=== PATIENT | female | born 1975 | race Caucasian/White ===

== ENCOUNTER 2022-08-23 17:55 | Emergency (ER) | payer OTHER ==
[2022-08-23 18:02] VITALS: TEMP 97.2
--- NOTE | 2022-08-23 18:26 | ED ---
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 She states she's had no trouble with eating drinking or with having bowel movements or urine output. She does states she felt hot and sweaty but after she vomited this sensation when away. She was instructed by her neurologist to come the facility for evaluation. He voices no complaints of loss of function to her upp er or lower extremity she does have some slow speech which is residual from the surgery. Nothing new with respect to the speech. No other current complaints or modifying factors (Kyle Mckay) - Related Data Home Medications Medication Instructions Recorded Confirmed Acetaminophen [Tylenol] 650 mg PO Q4H PRN 08/23/22 08/23/22 Brivaracetam [Briviact] 100 mg PO BID@0900,2100 08/23/22 08/23/22 Famotidine [Pepcid] 20 mg PO BID@0900,2100 08/23/22 08/23/22 Lacosamide [Vimpat] 100 mg PO Q6H 08/23/22 08/23/22 dexAMETHasone See Taper PO DIRECTED 08/23/22 08/23/22 lisinopriL [Zestril] 20 mg PO DAILY@0900 08/23/22 08/23/22 polyethylene glycoL 3350 [Miralax] 17 gm PO DAILY 08/23/22 08/23/22 Allergies Allergy/AdvReac Type Severity Reaction Status Date / Time No Known Allergies Allergy Verified 08/23/22 18:12 Review of Systems ROS Other: All systems not noted in ROS Statement are negative. <Kyle Mckay - Last Filed: 08/23/22 21:06> ROS Other: All systems not noted in ROS Statement are negative. <Deejay Mercer - Last Filed: 08/23/22 23:46> ROS Statement: Those systems with pertinent positive or pertinent negative responses have been documented in the HPI. Past Medical History Past Medical History: Rheumatoid Arthritis (RA), Seizure Disorder Additional Past Medical History / Comment(s): brain tumor History of Any Multi-Drug Resistant Organisms: None Reported Additional Past Surgical History / Comment(s): brain tumor removed Past Alcohol Use History: None Reported Past Drug Use History: None Reported <Kyle Mckay - Last Filed: 08/23/22 21:06> General Exam Limitations: no limitations General appearance: alert, lethargic Head exam: Present: other (Well-healed surgical scar the left side with staple line intact no evidence of any wound dehiscence or drainage no localized erythema) Eye exam: Present: normal appearance, PERRL, EOMI. Absent: scleral icterus, conjunctival injection, periorbital swelling ENT exam: Present: mucous membranes dry Neck exam: Present: normal inspection. Absent: tenderness, meningismus, lymphadenopathy Respiratory exam: Present: normal lung sounds bilaterally. Absent: respiratory distress, wheezes, rales, rhonchi, stridor Cardiovascular Exam: Present: regular rate, normal rhythm, normal heart sounds. Absent: systolic murmur, diastolic murmur, rubs, gallop, clicks GI/Abdominal exam: Present: soft, normal bowel sounds. Absent: distended, tenderness, guarding, rebound, rigid Extremities exam: Present: normal inspection, full ROM, normal capillary refill. Absent: tenderness, pedal edema, joint swelling, calf tenderness Back exam: Present: normal inspection Neurological exam: Present: alert, oriented X3, CN II-XII intact Psychiatric exam: Present: normal affect, normal mood Skin exam: Present: warm, dry, intact, normal color. Absent: rash <Kyle Mckay - Last Filed: 08/23/22 21:06> - General Exam Comments Initial Comments: Is a well-developed well-nourished awake alert oriented 4 female (Kyle Mckay) Course <WoodyKyle - Last Filed: 08/23/22 21:06> Vital Signs 08/23/22 08/23/22 08/23/22 17:56 18:34 20:40 Temperature 97.2 F L Pulse Rate 77 82 70 Respiratory 16 18 18 Rate Blood Pressure 100/73 118/67 133/58 O2 Sat by Pulse 98 99 98 Oximetry 08/23/22 22:05 Temperature Pulse Rate 82 Respiratory 16 Rate Blood Pressure 120/72 O2 Sat by Pulse 98 Oximetry - Reevaluation(s) Reevaluation #1: 08/23/22 21:08 Initially discuss the case with patient family did discuss the findings thus far. Indicated Dr. Cowart was a patient physician that they contacted and who one be called back if is Dr. Cowart is a neurologist Dr. Cowart's partner did recommend calling the neurosurgeon was Dr. Kirk. I did discuss this with Dr. Mercer who is taking over care (Kyle Mckay) Medical Decision Making - Lab Data Result diagrams: 08/23/22 18:29 08/23/22 18:29 <Kyle Mckay - Last Filed: 08/23/22 21:06> - Lab Data Result diagrams: 08/23/22 18:29 08/23/22 18:29 <Deejay Mercer - Last Filed: 08/23/22 23:46> - Medical Decision Making Was pt. sent in by a medical professional or institution (, PA, MILITARY PAY TECHNICIAN, urgent care, hospital, or detention...) When possible be specific @ -[No] Did you speak to anyone other than the patient for history (EMS, parent, family, police, friend...)? What history was obtained from this source @ -[No] Did you review nursing and triage notes (agree or disagree)? Why? @ -[I reviewed and agree with nursing and triage notes] Were old charts reviewed (outside hosp., previous admission, EMS record, old EKG, old radiological studies, urgent care reports/EKG's, detention records)? Report findings @ -[old charts were reviewed] Differential Diagnosis (chest pain, altered mental status, abdominal pain women, abdominal pain men, vaginal bleeding, weakness, fever, dyspnea, syncope, headache, dizziness, GI bleed, back pain, seizure, CVA, palpatations, mental health, musculoskeletal)? @ -[Dehydration, gastritis, post neurosurgical complications] EKG interpreted by me (3pts min.). @ -[Ventolin] X-rays interpreted by me (1pt min.). @ -[None done] CT interpreted by me (1pt min.). @ -[Interpreted by me] U/S interpreted by me (1pt. min.). @ -[None done] What testing was considered but not performed or refused? (CT, X-rays, U/S, labs)? Why? @ -[None] What meds were considered but not given or refused? Why? @ -[None] Did you discuss the management of the patient with other professionals (professionals i.e. , PA, MILITARY PAY TECHNICIAN, lab, RT, psych nurse, social media senior associate, campground attendant, teacher, forest fire control officer, case operator)? Give summary @ -[No] Was smoking cessation discussed for >3mins.? @ -[No] Was critical care preformed (if so, how long)? @ -[No] Were there social determinants of health that impacted care today? How? (Ho melessness, low income, unemployed, alcoholism, drug addiction, transportation, low edu. Level, literacy, decrease access to med. care, shelter, rehab)? @ -[No] Was there de-escalation of care discussed even if they declined (Discuss DNR or withdrawal of care, Hospice)? DNR status @ -[No] What co-morbidities impacted this encounter? (DM, HTN, Smoking, COPD, CAD, Cancer, CVA, ARF, Chemo, Hep., AIDS, mental health diagnosis, sleep apnea, morbid obesity)? @ -[None] Was patient admitted / discharged? Hospital course, mention meds given and route, prescriptions, significant lab abnormalities, going to OR and other pertinent info. @ -[hospital course] Undiagnosed new problem with uncertain prognosis? @ -[No] Drug Therapy requiring intensive monitoring for toxicity (Heparin, Nitro, Insulin, Cardizem)? @ -[No] Were any procedures done? @ -[No] Diagnosis/symptom? @ -[default] Acute, or Chronic, or Acute on Chronic? @ -[default] Uncomplicated (without systemic symptoms) or Complicated (systemic symptoms)? @ -[default] Side effects of treatment? @ -[No] Exacerbation, Progression, or Severe Exacerbation? @ -[No] Poses a threat to life or bodily function? How? (Chest pain, [place], [place], pneumonia, PE, COPD, DKA, ARF, appy, cholecystitis, CVA, Diverticulitis, Homicidal, Suicidal, threat to staff... and all critical care pts) @ -[No] (Kyle Mckay) I assumed care of the patient from Dr. Mckay. I assumed care pending the follow- up with the neurosurgeon for final recommendations and management. Was pt. sent in by a medical professional or institution (DrDiane, PA, MILITARY PAY TECHNICIAN, urgent care, hospital, or detention...) When possible be specific @ -Yes, Dr. Cowart's office Did you speak to anyone other than the patient for history (EMS, parent, family, police, friend...)? What history was obtained from this source @ -Yes, daughter and Did you review nursing and triage notes (agree or disagree)? Why? @ -I reviewed and agree with nursing and triage notes Were old charts reviewed (outside hosp., previous admission, EMS record, old EKG, old radiological studies, urgent care reports/EKG's, detention records)? Report findings @ -No old charts were reviewed Differential Diagnosis (chest pain, altered mental status, abdominal pain women, abdominal pain men, vaginal bleeding, weakness, fever, dyspnea, syncope, headache, dizziness, GI bleed, back pain, seizure, CVA, palpatations, mental health)? @ -Post-operative complication, intracranial hemorrhage, mass effect EKG interpreted by me (3pts min.). @ -None X-rays interpreted by me (1pt min.). @ -None done CT interpreted by me (1pt min.). @ -CT head was obtained and was interpreted by myself showing recent postsurgical changes with apparent excision of the large extra-axial mass over the left temporal lobe convexity. There is encephalomalacia and small areas of hemorrhage at the left anterior temporal convexity measuring up to 1 cm in th ickness. There was no evidence of any significant mass effect upon the adjacent temporal lobe parenchyma. U/S interpreted by me (1pt. min.). @ -None done What testing was considered but not performed or refused? (CT, X-rays, U/S, labs)? Why? @ -None What meds were considered but not given or refused? Why? @ -None Did you discuss the management of the patient with other professionals (professionals i.e. , PA, MILITARY PAY TECHNICIAN, lab, RT, psych nurse, social media senior associate, campground attendant, teacher, forest fire control officer, case operator)? Give summary @ -Yes, the neurosurgeon, Dr. Kirk, was contacted and the case was discussed with him. Was smoking cessation discussed for >3mins.? @ -No Was critical care preformed (if so, how long)? @ -No Were there social determinants of health that impacted care today? How? (Homelessness, low income, unemployed, alcoholism, drug addiction, ansari sportation, low edu. Level, literacy, decrease access to med. care, shelter, rehab)? @ -No Was there de-escalation of care discussed even if they declined (Discuss DNR or withdrawal of care, Hospice)? DNR status @ -No What co-morbidities impacted this encounter? (DM, HTN, Smoking, COPD, CAD, Cancer, CVA, ARF, Chemo, Hep., AIDS, mental health diagnosis, sleep apnea, morbid obesity)? @ -Recent hemangioma excision Was patient admitted / discharged? Hospital course, mention meds given and route, prescriptions, significant lab abnormalities, going to OR and other pertinent info. @ -The patient was initially seen and evaluated by Dr. Mckay. Workup was initiated and CT scans were obtained. The patient's neurologist was contacted initially by Dr. Mckay however they stated that the neurosurgeon needed be contacted regarding the CT findings. Dr. Kirk was contacted and he did state that all findings were consistent with the recent surgery and did not show any acute signs of complications. He did recommend neurology evaluation and continued medication changes. The patient's urologist was not contractor [employer] and therefore the on-call neurologist was not contacted once again. The patient was however advised to take her medications as previously prescribed as her sym ptoms were likely secondary to this. The patient was advised to take these medications throughout the weekend and to attempts to contact her own neurologist in order to have medication changes. The neurosurgeon stated that her symptoms are likely secondary to the medications that she is currently on and not related to any postop complication. The patient, myself and her family had an extensive conversation regarding this and they did agree. The were advised report back to the emergency department if the patient had a seizure- like activity or worsening symptoms. They were agreeable to this and understood all of these instructions. The patient was discharged home in stable condition with her family. Undiagnosed new problem with uncertain prognosis? @ -No Drug Therapy requiring intensive monitoring for toxicity (Heparin, Nitro, I nsulin, Cardizem)? @ -No Were any procedures done? @ -No Diagnosis/symptom? @ -Postop evaluation Acute, or Chronic, or Acute on Chronic? @ -Acute Uncomplicated (without systemic symptoms) or Complicated (systemic symptoms)? @ -Uncomplicated Side effects of treatment? @ -No Exacerbation, Progression, or Severe Exacerbation? @ -No Poses a threat to life or bodily function? How? (Chest pain, [place], [place], pneumonia, PE, COPD, DKA, ARF, appy, cholecystitis, CVA, Diverticulitis, Homicidal, Suicidal, threat to staff... and all critical care pts) @ -No (Deejay Mercer) - Lab Data Lab Results 08/23/22 08/23/22 08/23/22 Range/Units 18:29 18:29 18:29 WBC 12.7 H (3.8-10.6) k/uL RBC 4.92 (3.80-5.40) m/uL Hgb 13.9 (11.4-16.0) gm/dL Hct 43.0 (34.0-46.0) % MCV 87.4 (80.0-100.0) fL MCH 28.3 (25.0-35.0) pg MCHC 32.4 (31.0-37.0) g/dL RDW 14.5 (11.5-15.5) % Plt Count 438 (150-450) k/uL MPV 6.8 Neutrophils % 74 % Lymphocytes % 18 % Monocytes % 6 % Eosinophils % 1 % Basophils % 0 % Neutrophils # 9.4 H (1.3-7.7) k/uL Lymphocytes # 2.3 (1.0-4.8) k/uL Monocytes # 0.8 (0-1.0) k/uL Eosinophils # 0.1 (0-0.7) k/uL Basophils # 0.0 (0-0.2) k/uL PT 9.8 (9.0-12.0) sec INR 0.9 (<1.2) APTT 19.7 L (22.0-30.0) sec Sodium 132 L (137-145) mmol/L Potassium 4.6 (3.5-5.1) mmol/L Chloride 94 L (98-107) mmol/L Carbon Dioxide 27 (22-30) mmol/L Anion Gap 11 mmol/L BUN 28 H (7-17) mg/dL Creatinine 0.65 (0.52-1.04) mg/dL Est GFR (CKD-EPI)AfAm >90 (>60 ml/min/1.73 sqM) Est GFR (CKD-EPI)NonAf >90 (>60 ml/min/1.73 sqM) Glucose 112 H (74-99) mg/dL Plasma Lactic Acid Eyal (0.7-2.0) mmol/L Calcium 9.7 (8.4-10.2) mg/dL Magnesium 2.3 (1.6-2.3) mg/dL Total Bilirubin 0.8 (0.2-1.3) mg/dL AST 24 (14-36) U/L ALT 39 H (4-34) U/L Alkaline Phosphatase 86 (38-126) U/L Creatine Kinase 21 L (30-135) U/L Total Protein 7.6 (6.3-8.2) g/dL Albumin 4.4 (3.5-5.0) g/dL 08/23/22 Range/Units 18:29 WBC (3.8-10.6) k/uL RBC (3.80-5.40) m/uL Hgb (11.4-16.0) gm/dL Hct (34.0-46.0) % MCV (80.0-100.0) fL MCH (25.0-35.0) pg MCHC (31.0-37.0) g/dL RDW (11.5-15.5) % Plt Count (150-450) k/uL MPV Neutrophils % % Lymphocytes % % Monocytes % % Eosinophils % % Basophils % % Neutrophils # (1.3-7.7) k/uL Lymphocytes # (1.0-4.8) k/uL Monocytes # (0-1.0) k/uL Eosinophils # (0-0.7) k/uL Basophils # (0-0.2) k/uL PT (9.0-12.0) sec INR (<1.2) APTT (22.0-30.0) sec Sodium (137-145) mmol/L Potassium (3.5-5.1) mmol/L Chloride (98-107) mmol/L Carbon Dioxide (22-30) mmol/L Anion Gap mmol/L BUN (7-17) mg/dL Creatinine (0.52-1.04) mg/dL Est GFR (CKD-EPI)AfAm (>60 ml/min/1.73 sqM) Est GFR (CKD-EPI)NonAf (>60 ml/min/1.73 sqM) Glucose (74-99) mg/dL Plasma Lactic Acid Eyal 1.7 (0.7-2.0) mmol/L Calcium (8.4-10.2) mg/dL Magnesium (1.6-2.3) mg/dL Total Bilirubin (0.2-1.3) mg/dL AST (14-36) U/L ALT (4-34) U/L Alkaline Phosphatase (38-126) U/L Creatine Kinase (30-135) U/L Total Protein (6.3-8.2) g/dL Albumin (3.5-5.0) g/dL - Radiology Data Interpreted by me: I did discuss the findings with patient family thus far the CT shows evidence of postoperative changes this is true by me evidence of small amount of probable old bleeding some air bubbles noted. This on the left side imaging entered by me evidence of postoperative changes (Kyle Mckay) Disposition <Kyle Mckay - Last Filed: 08/23/22 21:06> Is patient prescribed a controlled substance at d/c from ED?: No Time of Disposition: 21:45 <Deejay Mercer - Last Filed: 08/23/22 23:46> Clinical Impression: Post-operative complication Disposition: HOME SELF-CARE Condition: Stable Instructions (If sedation given, give patient instructions): Acute Nausea and Vomiting (DC) Referrals: None,Stated [Primary Care Provider] - 1-2 days
[2022-08-23 18:40] LABS: Basophils % (A) 0 %; Eosinophils # (A) 0.1 k/uL (0-0.7); Eosinophils % (A) 1 %; HGB 13.9 gm/dL (11.4-16.0); Lymphocytes # (A) 2.3 k/uL (1.0-4.8); Lymphocytes % (A) 18 %; MCH 28.3 pg (25.0-35.0); MCHC 32.4 g/dL (31.0-37.0); MCV 87.4 fL (80.0-100.0); Mean Platelet Volume 6.8; Monocytes # (A) 0.8 k/uL (0-1.0); Monocytes % (A) 6 %; Neutrophils # (A) 9.4 k/uL (1.3-7.7); Neutrophils % (A) 74 %; Platelet Count 438 k/uL (150-450); RBC 4.92 m/uL (3.80-5.40); RDW 14.5 % (11.5-15.5); WBC 12.7 k/uL (3.8-10.6)
[2022-08-23 18:51] LABS: INR 0.9 (<1.2); Prothrombin Time 9.8 sec (9.0-12.0)
[2022-08-23 18:57] LABS: ALT 39 U/L (4-34); AST 24 U/L (14-36); African American GFR (CKD) >90 (>60 ml/min/1.73 sqM); Albumin 4.4 g/dL (3.5-5.0); Alkaline Phosphatase 86 U/L (38-126); Anion Gap 11 mmol/L; Blood Urea Nitrogen 28 mg/dL (7-17); Calcium 9.7 mg/dL (8.4-10.2); Carbon Dioxide 27 mmol/L (22-30); Chloride 94 mmol/L (98-107); Creatine Kinase 21 U/L (30-135); Glucose 112 mg/dL (74-99); Magnesium 2.3 mg/dL (1.6-2.3); Non-African American GFR(CKD) >90 (>60 ml/min/1.73 sqM); Potassium 4.6 mmol/L (3.5-5.1); Sodium 132 mmol/L (137-145); Total Bilirubin 0.8 mg/dL (0.2-1.3); Total Protein 7.6 g/dL (6.3-8.2)
[2022-08-23 19:00] LABS: Partial Thromboplastin Time 19.7 sec (22.0-30.0)
--- NOTE | 2022-08-23 19:03 | CT ---
EXAMINATION TYPE: CT brain wo con DATE OF EXAM: 08/23/2022 COMPARISON: 08/07/2022 HISTORY: Non-cancerous tumor removed x [address] DLP: 1145.4 mGycm Automated exposure control for dose reduction was used. Images of the brain obtained without contrast. There is recent left temporal craniotomy defect. There are skin magdy. There is some intracranial a ir bubbles in the subdural space over the left temporal convexity. There is hypodensity in the anteri or left temporal lobe with also small areas of increased density consistent with encephalomalacia and postsurgical changes. No midline shift. There is some elevation of the temporal bone flap on the pos terior aspect elevation is 10 mm the ventricles have normal size. IMPRESSION: Recent postsurgical changes with apparent excision of the large extra-axial mass over the left tempor al lobe convexity. There is encephalomalacia and small areas of hemorrhage at the left anterior tempo ral convexity measuring up to 1 cm in thickness. No evidence of any significant mass effect upon the adjacent temporal lobe parenchyma.
[2022-08-23] MEDS ORDERED: SODIUM CHLORIDE 0.9% 1,000 ML IV STA (19:51)
[2022-08-23] MEDS ORDERED: SODIUM CHLORIDE 0.9% 500 ML 500 ML IV STA (19:51)
[2022-08-23 22:37] VITALS: BP 120/72; PULSE 82; RESP 16
== END 2022-08-23 22:05 | disposition home or self-care (01) ==
LOC: EC 17:55
DX: G97.82 Other postprocedural complications and disorders of nervous system (principal); G40.909 Epilepsy, unspecified, not intractable, without status epilepticus; M06.9 Rheumatoid arthritis, unspecified; Z79.899 Other long term (current) drug therapy
CPT/HCPCS: 36415; 70450; 80053; 82550; 83605; 83735; 85025; 85610; 85730; 96360; 96361; 99285

== ENCOUNTER → 2023-02-20 | Outpatient (CLI) | payer OTHER ==
--- NOTE | 2023-02-20 20:59 | MM ---
Reason for Exam: Screening (asymptomatic). Baseline mammogram. Patient History: Menarche at age 10. First Full-Term at age 23. Last menstrual period: 01/31/2023 Risk Values: Flory 5 year model risk: 1.0%. NCI Lifetime model risk: 10.0%. Prior Study Comparison: Patient's first Mammogram. No prior studies available for comparison. Tissue Density: There are scattered fibroglandular densities. Findings: Analyzed By CAD. Pattern appears symmetrical. Benign linear calcifications are present bilaterally. No suspicious groups of microcalcifications, spiculated or lobular masses, architectural distortion or other secondary signs of malignancy are mammographically apparent. Overall Assessment: Benign, BI-RAD 2 Management: Screening Mammogram of both breasts in 1 year. A negative mammogram report should not preclude additional follow up of suspicious palpable abnormalities. Patient should continue monthly self breast exam. A clinical breast exam by your physician is recommended on an annual basis and results should be correlated with mammographic findings. Electronically signed and approved by: Serge Rai D.O. Radiologis
== END | disposition home or self-care (01) ==
LOC: RADMAMWWP 07:01
PROVIDERS: ATTEND Family Medicine
DX: Z12.31 Encounter for screening mammogram for malignant neoplasm of breast (principal)
CPT/HCPCS: 77063; 77067

== ENCOUNTER 2023-02-24 02:57 | Observation (INO) | payer OTHER ==
[2023-02-24] MEDS ORDERED: SODIUM CHLORIDE 0.9% 500 ML 500 ML IV STA (04:07)
[2023-02-24 04:23] LABS: Glucose,Whole Blood 120 mg/dL (70-110)
[2023-02-24] MEDS ORDERED: LORazepam 2 MG/ML INJ IV STA (04:50)
[2023-02-24] MEDS ORDERED: levETIRAcetam IV 500 MG/5 ML VIAL IVP STA (04:50)
[2023-02-24] MEDS ORDERED: MIDAZOLAM 1 MG/ML 5 ML VIAL IV STA (04:58)
[2023-02-24 05:15] LABS: Basophils % (A) 0 %; Eosinophils # (A) 0.2 k/uL (0-0.7); Eosinophils % (A) 2 %; HCT 39.3 % (34.0-46.0); HGB 12.5 gm/dL (11.4-16.0); Lymphocytes % (A) 22 %; MCH 28.2 pg (25.0-35.0); MCHC 31.8 g/dL (31.0-37.0); MCV 88.7 fL (80.0-100.0); Mean Platelet Volume 7.9; Monocytes # (A) 0.6 k/uL (0-1.0); Monocytes % (A) 6 %; Neutrophils # (A) 6.4 k/uL (1.3-7.7); Neutrophils % (A) 69 %; Platelet Count 314 k/uL (150-450); RBC 4.43 m/uL (3.80-5.40); RDW 14.9 % (11.5-15.5); WBC 9.3 k/uL (3.8-10.6)
[2023-02-24 05:19] LABS: ALT 18 U/L (4-34); AST 23 U/L (14-36); African American GFR (CKD) >90 (>60 ml/min/1.73 sqM); Albumin 3.9 g/dL (3.5-5.0); Alkaline Phosphatase 98 U/L (38-126); Anion Gap 9 mmol/L; Blood Urea Nitrogen 22 mg/dL (7-17); Calcium 9.4 mg/dL (8.4-10.2); Carbon Dioxide 25 mmol/L (22-30); Chloride 103 mmol/L (98-107); Creatine Kinase 39 U/L (30-135); Glucose 97 mg/dL (74-99); Magnesium 1.9 mg/dL (1.6-2.3); Non-African American GFR(CKD) >90 (>60 ml/min/1.73 sqM); Potassium 4.2 mmol/L (3.5-5.1); Sodium 137 mmol/L (137-145); Total Bilirubin 0.4 mg/dL (0.2-1.3); Total Protein 7.3 g/dL (6.3-8.2)
--- NOTE | 2023-02-24 05:29 | ED ---
Seizure HPI - General Chief Complaint: Seizure Stated Complaint: Seizure Time Seen by Provider: 02/24/23 03:00 Source: EMS Mode of arrival: EMS Limitations: no limitations - History of Present Illness Initial Comments: 47-year-old female with past medical history of rheumatoid arthritis, seizure disorder, meningioma with removal in July who presents emergency department with seizures. states that he woke up to his in bed screaming and foaming at the mouth. She had a focal seizure that lasted approximately 1 minute. He then called EMS. Upon hospital arrival the patient had a full tonic-clonic seizure that lasted approximately 45 seconds. She does have history of seizure disorder. She is not currently taking any seizure medi cations. states that she was slowly weaned off of them. She did have a craniotomy with tumor removal in July as she did have a very large meningioma. She was transferred to [facility] where she does have a neurosurgeon and neurologist. During my examination the patient cannot provide any history. No recent illnesses reported. No trauma. - Related Data Home Medications Medication Instructions Recorded Confirmed lisinopriL [Zestril] 20 mg PO DAILY 08/23/22 02/24/23 Folic Acid 1 mg PO DAILY 02/24/23 02/24/23 Naproxen [Naprosyn] 500 mg PO BID PRN 02/24/23 02/24/23 Allergies Allergy/AdvReac Type Severity Reaction Status Date / Time No Known Allergies Allergy Verified 02/24/23 07:49 Review of Systems ROS Statement: Those systems with pertinent positive or pertinent negative responses have been documented in the HPI. ROS Other: All systems not noted in ROS Statement are negative. Past Medical History Past Medical History: Rheumatoid Arthritis (RA), Seizure Disorder Additional Past Medical History / Comment(s): brain tumor History of Any Multi-Drug Resistant Organisms: None Reported Additional Past Surgical History / Comment(s): brain tumor removed Smoking Status: Current every day smoker Past Alcohol Use History: None Reported Past Drug Use History: None Reported General Exam Limitations: altered mental status General appearance: anxious, lethargic Head exam: Present: normal inspection Eye exam: Present: normal appearance, PERRL, EOMI. Absent: scleral icterus, conjunctival injection, periorbital swelling ENT exam: Present: normal exam, mucous membranes moist Neck exam: Present: normal inspection. Absent: tenderness, meningismus, lymphadenopathy Respiratory exam: Present: normal lung sounds bilaterally. Absent: respiratory distress, wheezes, rales, rhonchi, stridor Cardiovascular Exam: Present: regular rate, normal rhythm, normal heart sounds. Absent: systolic murmur, diastolic murmur, rubs, gallop, clicks GI/Abdominal exam: Present: soft, normal bowel sounds. Absent: distended, tenderness, guarding, rebound, rigid Extremities exam: Present: normal inspection, full ROM, normal capillary refill. Absent: tenderness, pedal edema, joint swelling, calf tenderness Back exam: Present: normal inspection Neurological exam: Present: altered, CN II-XII intact, other (Agitated, rolling around in bed) Psychiatric exam: Present: flat affect Skin exam: Present: warm, dry, intact, normal color. Absent: rash Course Vital Signs 02/24/23 02/24/23 02/24/23 02:59 04:26 09:01 Temperature 97.9 F 98.2 F 98.2 F Pulse Rate 84 130 H 99 Respiratory 20 16 20 Rate Blood Pressure 143/84 170/105 127/92 O2 Sat by Pulse 96 99 99 Oximetry Medical Decision Making - Medical Decision Making Was pt. sent in by a medical professional or institution (, PA, NUT SHELLER MACHINE OPERATOR, urgent care, hospital, or senior living...) When possible be specific @ -No Did you speak to anyone other than the patient for history (EMS, parent, family, police, friend...)? What history was obtained from this source @ -I spoke with the and EMS Did you review nursing and triage notes (agree or disagree)? Why? @ -I reviewed and agree with nursing and triage notes Were old charts reviewed (outside hosp., previous admission, EMS record, old EKG, old radiological studies, urgent care reports/EKG's, senior living records)? Report findings @ -No old charts were reviewed Differential Diagnosis (chest pain, altered mental status, abdominal pain women, abdominal pain men, vaginal bleeding, weakness, fever, dyspnea, syncope, headache, dizziness, GI bleed, back pain, seizure, CVA, palpatations, mental health, musculoskeletal)? @ -Differential Seizure: Recurrent seizure disorder, febrile seizure, alcohol withdrawal, stimulants, meningitis, encephalitis, intercranial hemorrhage, intracranial tumor, stroke, eclampsia, thyrotoxicosis, hypocalcemia, hyponatremia, hypernatremia, hypomagnesemia, psychogenic, this is not meant to be an all-inclusive list. EKG interpreted by me (3pts min.). @ -Yes and demonstrates sinus tachycardia with a rate of 104. [place] interval 120. QRS 106. QTC of 406. No acute ST segment elevations or depressions X-rays interpreted by me (1pt min.). @ -None done CT interpreted by me (1pt min.). @ -Yes and demonstrates post op changes without acute process U/S interpreted by me (1pt. min.). @ -None done What testing was considered but not performed or refused? (CT, X-rays, U/S, labs)? Why? @ -None What meds were considered but not given or refused? Why? @ -None Did you discuss the management of the patient with other professionals (professionals i.e. , PA, NUT SHELLER MACHINE OPERATOR, lab, RT, psych nurse, social sciences chair, mine inspector federal, teacher, security police officer, case management director)? Give summary @ -Spoke with Dr. Hernandez Was smoking cessation discussed for >3mins.? @ -No Was critical care preformed (if so, how long)? @ -35 minutes for management of active seizures Were there social determinants of health that impacted care today? How? (Homelessness, low income, unemployed, alcoholism, drug addiction, trans portation, low edu. Level, literacy, decrease access to med. care, shelter, rehab)? @ -No Was there de-escalation of care discussed even if they declined (Discuss DNR or withdrawal of care, Hospice)? DNR status @ -No What co-morbidities impacted this encounter? (DM, HTN, Smoking, COPD, CAD, Cancer, CVA, ARF, Chemo, Hep., AIDS, mental health diagnosis, sleep apnea, morbid obesity)? @ -craniotomy with meningioma removal, seizure disorder Was patient admitted / discharged? Hospital course, mention meds given and route, prescriptions, significant lab abnormalities, going to OR and other pertinent info. @ -Upon arrival patient was placed into room 24. History and physical exam was performed. Patient does have a tonic-clonic seizure which is witnessed by nursing staff. She was given 2 mg of Ativan through her IV. Laboratory studies are conducted. Patient does go for CT of her head as she does have previous craniotomy history. CT is reviewed by myself and negative for any acute process. She was given a gram of Keppra loading as she has had 2 seizures at this time. I did discuss results with the patient and her . She will be admitted for neurology consultation. Spoke with Dr. Hernandez who agreed to admit the patient Undiagnosed new problem with uncertain prognosis? @ -yes Drug Therapy requiring intensive monitoring for toxicity (Heparin, Nitro, Insulin, Cardizem)? @ -No Were any procedures done? @ -No Diagnosis/symptom? @ -acute seizure, hx seizure disorder Acute, or Chronic, or Acute on Chronic? @ -acute on chronic Uncomplicated (without systemic symptoms) or Complicated (systemic symptoms)? @ -complicated Side effects of treatment? @ -No Exacerbation, Progression, or Severe Exacerbation? @ -No Poses a threat to life or bodily function? How? (Chest pain, USA, ID, pneumonia, PE, COPD, DKA, ARF, appy, cholecystitis, CVA, Diverticulitis, Homicidal, Suicidal, threat to staff... and all critical care pts) @ -yes - patient has had multiple seizures without return to baseline at this time - Lab Data Result diagrams: 02/24/23 04:43 02/24/23 04:43 Lab Results 02/24/23 02/24/23 02/24/23 Range/Units 04:22 04:43 04:43 WBC 9.3 (3.8-10.6) k/uL RBC 4.43 (3.80-5.40) m/uL Hgb 12.5 (11.4-16.0) gm/dL Hct 39.3 (34.0-46.0) % MCV 88.7 (80.0-100.0) fL MCH 28.2 (25.0-35.0) pg MCHC 31.8 (31.0-37.0) g/dL RDW 14.9 (11.5-15.5) % Plt Count 314 (150-450) k/uL MPV 7.9 Neutrophils % 69 % Lymphocytes % 22 % Monocytes % 6 % Eosinophils % 2 % Basophils % 0 % Neutrophils # 6.4 (1.3-7.7) k/uL Lymphocytes # 2.0 (1.0-4.8) k/uL Monocytes # 0.6 (0-1.0) k/uL Eosinophils # 0.2 (0-0.7) k/uL Basophils # 0.0 (0-0.2) k/uL Sodium 137 (137-145) mmol/L Potassium 4.2 (3.5-5.1) mmol/L Chloride 103 (98-107) mmol/L Carbon Dioxide 25 (22-30) mmol/L Anion Gap 9 mmol/L BUN 22 H (7-17) mg/dL Creatinine 0.68 (0.52-1.04) mg/dL Est GFR (CKD-EPI)AfAm >90 (>60 ml/min/1.73 sqM) Est GFR (CKD-EPI)NonAf >90 (>60 ml/min/1.73 sqM) Glucose 97 (74-99) mg/dL POC Glucose (mg/dL) 120 H (70-110) mg/dL POC Glu It Service Technician ID Bossman Larry Lactic Ac Sepsis Rflx Plasma Lactic Acid Eyal (0.7-2.0) mmol/L Calcium 9.4 (8.4-10.2) mg/dL Magnesium 1.9 (1.6-2.3) mg/dL Total Bilirubin 0.4 (0.2-1.3) mg/dL AST 23 (14-36) U/L ALT 18 (4-34) U/L Alkaline Phosphatase 98 (38-126) U/L Creatine Kinase 39 (30-135) U/L Total Protein 7.3 (6.3-8.2) g/dL Albumin 3.9 (3.5-5.0) g/dL 02/24/23 02/24/23 Range/Units 04:43 05:17 WBC (3.8-10.6) k/uL RBC (3.80-5.40) m/uL Hgb (11.4-16.0) gm/dL Hct (34.0-46.0) % MCV (80.0-100.0) fL MCH (25.0-35.0) pg MCHC (31.0-37.0) g/dL RDW (11.5-15.5) % Plt Count (150-450) k/uL MPV Neutrophils % % Lymphocytes % % Monocytes % % Eosinophils % % Basophils % % Neutrophils # (1.3-7.7) k/uL Lymphocytes # (1.0-4.8) k/uL Monocytes # (0-1.0) k/uL Eosinophils # (0-0.7) k/uL Basophils # (0-0.2) k/uL Sodium (137-145) mmol/L Potassium (3.5-5.1) mmol/L Chloride (98-107) mmol/L Carbon Dioxide (22-30) mmol/L Anion Gap mmol/L BUN (7-17) mg/dL Creatinine (0.52-1.04) mg/dL Est GFR (CKD-EPI)AfAm (>60 ml/min/1.73 sqM) Est GFR (CKD-EPI)NonAf (>60 ml/min/1.73 sqM) Glucose (74-99) mg/dL POC Glucose (mg/dL) (70-110) mg/dL POC Glu It Service Technician ID Lactic Ac Sepsis Rflx Y Plasma Lactic Acid Eyal 3.3 H* (0.7-2.0) mmol/L Calcium (8.4-10.2) mg/dL Magnesium (1.6-2.3) mg/dL Total Bilirubin (0.2-1.3) mg/dL AST (14-36) U/L ALT (4-34) U/L Alkaline Phosphatase (38-126) U/L Creatine Kinase (30-135) U/L Total Protein (6.3-8.2) g/dL Albumin (3.5-5.0) g/dL Disposition Clinical Impression: Breakthrough seizure Disposition: ADMITTED IP TO THIS [facility] Condition: Serious Is patient prescribed a controlled substance at d/c from ED?: No Time of Disposition: 07:02 Decision to Admit Reason: Admit from EC Decision Date: 02/24/23 Decision Time: 07:02
--- NOTE | 2023-02-24 07:16 | CT ---
EXAMINATION TYPE: CT brain wo con DATE OF EXAM: 02/24/2023 COMPARISON: 08/23/2022 HISTORY: Altered mental status Unenhanced CT of the brain was performed. There are changes of left-sided craniotomy there is decreased attenuation within the left temporal lo be compatible with postoperative encephalomalacia. Previously noted air bubbles within the subdural s pace have resolved. I do not see evidence for acute intracranial hemorrhage. There is no evidence for midline shift. Otherwise the ventricles, basal cisterns and sulci overlying the cerebral convexities demonstrate a n ormal appearance. There is no evidence for intracranial hemorrhage or sulcal effacement. No mass effects are seen. Osseous calvarium is intact. If symptoms persist consider MRI as clinically warranted. IMPRESSION: 1. Postoperative changes of left temporal craniotomy with postoperative encephalomalacia. No evidence for intracranial hemorrhage, significant mass effect or midline shift.
[2023-02-24] MEDS ORDERED: NALOXONE 0.4 MG/ML 1 ML VIAL IV PRN (07:30)
[2023-02-24] MEDS ORDERED: ONDANSETRON 4 MG/2 ML VIAL IVP PRN (07:30)
[2023-02-24] MEDS ORDERED: LORazepam 2 MG/ML INJ IV PRN ×2 (09:14→10:39)
--- NOTE | 2023-02-24 09:15 | P.HPIM ---
History of Present Illness H&P Date: 02/24/23 Chief Complaint: seizure 47 year old woman with history of meningioma status post resection in July 2022, rheumatoid arthritis, seizure disorder presents for evaluation of focal seizure. History is provided by ER provider signout as well as chart reviewed since patient is unable to provide history due to agitation. From my understanding, woke up to his screaming in the bedroom foaming at the mouth, this episode lasted for approximately 1 minute. He called emergency medical services and she was brought to the hospital. He tells me that patient had craniotomy with tumor removal in July 2022 for a very large meningioma, and was placed on antiepileptic medications for approximately 3 months while being tapered off of them. She's been seizure free since that time, and was just starting to drive again prior to this episode. She is presently not on any antiepileptic medications. Review of systems could not be completed due to patient's agitation. In the emergency room, patient was afebrile, 143/84, heart rate 84, 96% on room air. CBC is unremarkable. Basic metabolic panel is unremarkable. Liver function tests are unremarkable. Lactic acid was 3.3. Brain CT showed postoperative changes in the left temporal lobe, postoperative encephalomalacia, no intracranial hemorrhage, mass effect, or midline shift. Case was discussed the emergency room where a decision was made to admit the patient to the hospital for workup of seizures. Patient received 5 mg of Versed, 2 mg of Ativan, 1000 mg of Keppra. See HPI regarding review of systems Gen: Appears stated age, restless and agitated in bed Eyes: PERRL, no scleral injection or icterus HENT: normocephalic, atraumatic, good hearing acuity, moist mucous membranes Neck: no tracheal deviation, full range of motion Resp: good air exchange, breathing comfortably with no accessory muscle use, no tactile fremitus CVS: good distal perfusion x 4, no pitting edema GI: soft, NTTP, ND, no hepatosplenomegaly : no suprapubic tenderness, no CVAT, mauro catheter not present MSK: no clubbing, no cyanosis, no noted contractures of extremities Skin: no noted rashes, petechiae; temperature of skin is appropriate Neuro: moving all extremities without signs of weakness, CN II-XII intact Labs and imaging as above Assessment: Seizure History of meningioma status post craniotomy History of rheumatoid arthritis HTN Plan: Vital signs, labs, images reviewed as above Case was discussed with the emergency room provider and decision was made to escalate care to inpatient status Neurology was consulted Continue Keppra 500 mg twice a day Ativan 1 mg every hour when necessary for seizures, call M.D. if ongoing seizure activity EEG ordered UA to rule out infection Urine tox screen Patient is full code Past Medical History Past Medical History: Rheumatoid Arthritis (RA), Seizure Disorder Additional Past Medical History / Comment(s): brain tumor History of Any Multi-Drug Resistant Organisms: None Reported Additional Past Surgical History / Comment(s): brain tumor removed Smoking Status: Current every day smoker Past Alcohol Use History: None Reported Past Drug Use History: None Reported Medications and Allergies Home Medications Medication Instructions Recorded Confirmed Type lisinopriL [Zestril] 20 mg PO DAILY 08/23/22 02/24/23 History Folic Acid 1 mg PO DAILY 02/24/23 02/24/23 History Naproxen [Naprosyn] 500 mg PO BID PRN 02/24/23 02/24/23 History Allergies Allergy/AdvReac Type Severity Reaction Status Date / Time No Known Allergies Allergy Verified 02/24/23 07:49 Physical Exam Osteopathic Statement: *. No significant issues noted on an osteopathic structural exam other than those noted in the History and Physical/Consult. Vitals: Vital Signs Temp Pulse Resp BP Pulse Ox 02/24/23 09:01 98.2 F 99 20 127/92 99 02/24/23 04:26 98.2 F 130 H 16 170/105 99 02/24/23 02:59 97.9 F 84 20 143/84 96 Intake and Output 02/23/23 02/24/23 02/24/23 22:59 06:59 14:59 Other: Weight 113.398 kg Results CBC & Chem 7: 02/24/23 04:43 02/24/23 04:43 Labs: Abnormal Lab Results - Last 24 Hours (Table) 02/24/23 02/24/23 02/24/23 Range/Units 04:22 04:43 04:43 BUN 22 H (7-17) mg/dL POC Glucose (mg/dL) 120 H (70-110) mg/dL Plasma Lactic Acid Eyal 3.3 H* (0.7-2.0) mmol/L
[2023-02-24] MEDS: SODIUM CHLORIDE 0.9% 1,000 ML IV SCH ×3 (10:45→22:39)
[2023-02-24] MEDS: ACETAMINOPHEN TAB 325 MG TAB PO PRN ×2 (11:47→22:36)
--- NOTE | 2023-02-24 12:55 | P.CNNES ---
History of Present Illness Consult date: 02/24/23 Requesting physician: Jeanne Dejesus Reason for Consult: seizure, hx of seizure disorder History of Present Illness: This is a 47-year-old woman with history of meningioma s/p resection on 07/2022, seizure who presents to the emergency department because of break-through seizure. Some of the history is obtained from patient's and medical records. Patient's is at bedside. At home, the woke-up to his screaming in the bedroom, foaming around the mound and the episode lasted 1 minute. Upon arrival to our ED, she had full tonic-clonic seizure that last approximately about 45 seconds per ED physician. The patient had history of large meningioma s/p craniotomy in 07/2022. She had history of seizure and was placed on antiepiletpic and was on Vimpat 200mg qid, Brivact in 07/2022 was on it for 3 months then tapering off and bee off antiepileptic drugs since 10/2022 since felt her seizures are controlled. She had routine EEG and one prolonged EEG in the past. She has recently started driving. She follows-up with Dr. Felix (neurologist) and neurosurgeon over at [facility]. It seems she was initially on Keppra but was not helping her seizures in the past that is why they changed to Vimpat and was started on Brivact. The medication were large dose per and was making her sleepy in past so tapered down until off. Some of the work-up in our facility consists of: CBC with diff is normal. Plasma lactic acid vein is 3.3, glucose is 120, BUN 22. Otherwise rest is normal. CT head is reported as Postoperative changes of the left temporal craniotomy with postoperative encephalomalacia. No evidence for intracranial hemorrhage, significant mass effect or midline shift. I personally reviewed CT head and agree with report. Therefore, patient has received 5mg Versed, 2mg ATivan and 1000mg Keppra. Review of Systems Review of system is reviewed and the pertinent positive and negative as per HPI. Past Medical History Past Medical History: Rheumatoid Arthritis (RA), Seizure Disorder Additional Past Medical History / Comment(s): brain tumor History of Any Multi-Drug Resistant Organisms: None Reported Additional Past Surgical History / Comment(s): brain tumor removed Smoking Status: Never smoker Past Alcohol Use History: None Reported Past Drug Use History: None Reported Medications and Allergies Home Medications Medication Instructions Recorded Confirmed Type lisinopriL [Zestril] 20 mg PO DAILY 08/23/22 02/24/23 History Folic Acid 1 mg PO DAILY 02/24/23 02/24/23 History Naproxen [Naprosyn] 500 mg PO BID PRN 02/24/23 02/24/23 History Allergies Allergy/AdvReac Type Severity Reaction Status Date / Time No Known Allergies Allergy Verified 02/24/23 07:49 Physical Examination - Vital Signs Vital Signs: Vital Signs Temp Pulse Resp BP Pulse Ox 02/24/23 09:01 98.2 F 99 20 127/92 99 02/24/23 04:26 98.2 F 130 H 16 170/105 99 02/24/23 02:59 97.9 F 84 20 143/84 96 Intake and Output 02/23/23 02/24/23 02/24/23 22:59 06:59 14:59 Other: Weight 113.398 kg 113.398 kg GENERAL: The patient is an obese woman lying in bed and is not in acute distress. NEUROLOGICAL: Limited because of her condition. Higher mental function: The patient is somewhat drowsy but is awakeable to voic e, oriented to place. Patient is following few simple commands. Language is limited. Cranial nerves: The pupils are round, equal and reactive to light. No facial weakness. No dysarthria. Motor: The strength is limited in assessment individual muscle strength. Is lifting lowers above gravity equally but able feels she is sore but squeezes hand equally. Cerebellum: Unable to assess. Sensation: Unable to assess because of cooperation. Reflexes (right/left): 1+ throughout. Plantars are mute bilaterally. Results - Laboratory Findings CBC and BMP: 02/24/23 04:43 02/24/23 04:43 Abnormal Lab Findings: Abnormal Labs 02/24/23 02/24/23 02/24/23 04:22 04:43 04:43 BUN 22 H POC Glucose (mg/dL) 120 H Plasma Lactic Acid Eyal 3.3 H* Assessment and Plan Assessment: This is a 47y/o woman with hx of large meningioma over the left temporal s/p resection on 07/2022, seizure who presents to the emergency department because of break-through seizure at home described as waking up to screaming, foaming around the mouth lasting 1 minute and then had GTC in our facility lasting 45 seconds. She has history of seizures and was tapered off antiepileptic drugs. Break through seizure. Not on antiepiletpic drugs. History of large left meningioma s/p resection in 07/2022 History of seizures and was tapered off Vimpat and Briavct and off sedation since 10/2022. Keppra was not helping with seizures in past. Morbit Obesity Plan: In the ED she received 2mg ATivan 5mg Versed and was loaded with Keppra 1gm. She was started on Keppra 500mg bid by primary team. I spoke with and her daughter and it seems Keppra was not helping with seizures in past and patient was as result on Brivact and Vimpat and been tapered and off sedation since 10/2022. I will stop Keppra as result and will start her on Vimpat 100mg bid. An EEG is ordered and is pending. She is on Ativan 1mg every 1 hour PRN for seizure and I changed it to every 4 hours to avoid overuse and if any seizure to contact neurology team. Seizure precaution and pads. I highly recommend a prolonged EEG or Epilepsy monitoring unit (EMU) as outpatient to access if having frequent seizure, subclinical seizures. Per [place] DMV because of her seizure, she is to avoid driving for 6 months until seizure free, avoid heights, swim unassisted, use heavy machinery. Will defer the rest of medical management to the primary team. Recommend the patient to follow-up with her neurologist (Dr. Felix) and neurosurgeon over at [facility] within 1-2 weeks. The plan is discussed with patient's who is at bedside and her daughter (via phone). Thank you for the consultation. Time with Patient: Greater than 30
[2023-02-24] MEDS: LACOSAMIDE 50 MG TABLET PO SCH ×2 (14:44→20:27)
--- NOTE | 2023-02-24 19:01 | EEG ---
ELECTROENCEPHALOGRAM REPORT CLINICAL HISTORY: This is a 47-year-old woman with history of left brain mass, status post resection and seizure, who presented to the emergency department because of breakthrough seizures. RELEVANT MEDICATIONS: 1. Keppra. 2. Ativan. 3. Versed. EEG TYPE: A routine 21-channel EEG is performed with video using the 10/20 electrode placement system. DESCRIPTION: Wakefulness is only obtained. During awake state, the background consists of 11 Hz activity. There is no physiological stage II sleep architecture. There is focal slowing over the left temporal region. There is delta slowing over the left frontal region. There is an increased amplitude activity over the left temporal region. INTERICTAL AND ICTAL: None. ACTIVATION PROCEDURE: Photic stimulation did not evoke a posterior driving response. There is no abnormality during the photic stimulation. Hyperventilation is not performed. CLINICAL INTERPRETATION: This is an abnormal routine EEG. The focal slowing over the left temporal region is suggestive of focal cerebral dysfunction. There is a breach over the left temporal region consistent with the patient's history of skull defect. Otherwise, there is no epileptiform discharge or seizure on the EEG, and the background is normal. Clinical correlation is recommended. MMODL / IJN: [id number] /
[2023-02-24] MEDS ORDERED: levETIRAcetam IV 500 MG/5 ML VIAL IVP SCH (21:00)
[2023-02-24] MEDS ORDERED: levETIRAcetam IV 500 MG in SODIUM CHLORIDE 0.9% 250 ML IVPB SCH (21:00)
[2023-02-25 06:04] LABS: Basophils % (A) 0 %; Eosinophils # (A) 0.1 k/uL (0-0.7); Eosinophils % (A) 2 %; HCT 38.5 % (34.0-46.0); HGB 11.8 gm/dL (11.4-16.0); Lymphocytes # (A) 1.7 k/uL (1.0-4.8); Lymphocytes % (A) 21 %; MCH 27.3 pg (25.0-35.0); MCHC 30.8 g/dL (31.0-37.0); MCV 88.7 fL (80.0-100.0); Mean Platelet Volume 7.1; Monocytes # (A) 0.5 k/uL (0-1.0); Monocytes % (A) 7 %; Neutrophils # (A) 5.6 k/uL (1.3-7.7); Neutrophils % (A) 70 %; Platelet Count 268 k/uL (150-450); RBC 4.34 m/uL (3.80-5.40); RDW 14.9 % (11.5-15.5)
[2023-02-25 06:08] LABS: African American GFR (CKD) >90 (>60 ml/min/1.73 sqM); Anion Gap 7 mmol/L; Blood Urea Nitrogen 13 mg/dL (7-17); Carbon Dioxide 25 mmol/L (22-30); Chloride 105 mmol/L (98-107); Glucose 93 mg/dL (74-99); Non-African American GFR(CKD) >90 (>60 ml/min/1.73 sqM); Potassium 3.7 mmol/L (3.5-5.1); Sodium 137 mmol/L (137-145)
[2023-02-25] MEDS: SODIUM CHLORIDE 0.9% 1,000 ML IV SCH (06:31)
[2023-02-25] MEDS ORDERED: FOLIC ACID 1 MG TAB PO SCH (09:00)
[2023-02-25] MEDS: LACOSAMIDE 50 MG TABLET PO SCH (09:00)
[2023-02-25] MEDS ORDERED: lisinopriL 20 MG TAB PO SCH (09:00)
[2023-02-25] MEDS ORDERED: IBUPROFEN 600 MG TAB PO PRN (09:15)
[2023-02-25 09:26] VITALS: BP 115/77; PULSE 80; RESP 21; TEMP 98.6
--- NOTE | 2023-02-25 12:10 | P.DS ---
Providers Date of admission: 02/24/23 07:30 Expected date of discharge: 02/25/23 Attending physician: Sandra Hernandez MD Consults: 02/24/23 07:30 Consult Physician Urgent Consulting Provider: Jesus Manuel Tamez Consult Reason/Comments: seizure, hx seizure disorder Do you want consulting provider notified?: Yes Primary care physician: Juan David Villalta Hospital Course: Discharge Diagnosis: Breakthrough Seizure History of meningioma status post craniotomy Questionable History of rheumatoid arthritis HTN Lactic acidosis Hospital Course: 47 year old woman with history of meningioma status post resection in July 2022, seizure disorder presents for evaluation of focal seizure. In the emergency room, patient was afebrile, 143/84, heart rate 84, 96% on room air. CBC is unremarkable. Basic metabolic panel is unremarkable. Liver function tests are unremarkable. Lactic acid was 3.3. Brain CT showed postoperative changes in the left temporal lobe, postoperative encephalomalacia, no intracranial hemorrhage, mass effect, or midline shift. Patient admitted for breakthrough seizures. Patient received 5 mg of Versed, 2 mg of Ativan, 1000 mg of Keppra. She has not tolerated Keppra in the past. Patient being discharged on oral antibiotic, follow up with her neurologist. Patient seen and examined at bedside. Vital signs reviewed and stable. General: nontoxic, no distress, appears at stated age Derm: warm, dry Head: atraumatic, normocephalic, symmetric Eyes: EOMI, no lid lag, anicteric sclera Mouth: no lip lesion, mucus membranes moist Cardiovascular: S1S2 reg, no murmur Lungs: CTA bilateral, no rhonchi, no rales , no accessory muscle use Abdominal: soft, nontender to palpation, no guarding, no appreciable organomegaly Ext: no gross muscle atrophy, no edema, no contractures Neuro: CN II-XI grossly intact, no focal neuro deficits Psych: Alert, oriented, appropriate affect A total of 33 minutes of time were spent preparing this complex discharge summary. Patient was discharged on 02/25/23 at 12:06. Patient Condition at Discharge: Stable Plan - Discharge Summary Discharge Rx Participant: No New Discharge Prescriptions: New Lacosamide [Vimpat] 100 mg PO BID #30 tab Continue lisinopriL [Zestril] 20 mg PO DAILY Naproxen [Naprosyn] 500 mg PO BID PRN PRN Reason: Pain Folic Acid 1 mg PO DAILY Discharge Medication List lisinopriL [Zestril] 20 mg PO DAILY 08/23/22 [History] Folic Acid 1 mg PO DAILY 02/24/23 [History] Naproxen [Naprosyn] 500 mg PO BID PRN 02/24/23 [History] Lacosamide [Vimpat] 100 mg PO BID #30 tab 02/25/23 [Rx] Follow up Appointment(s)/Referral(s): Juan David Villalta MD [Primary Care Provider] - 1-2 days Patient Instructions/Handouts: Seizure/Epilepsy Discharge Instructions & Follow-Up Activity/Diet/Wound Care/Special Instructions: Please see your neurologist. Discharge Disposition: HOME SELF-CARE
--- NOTE | 2023-02-25 14:40 | P.PN ---
Subjective Progress Note Date: 02/25/23 On follow-up seeing the patient and no further seizures. Patient feels drastically better. Objective - Vital Signs Vital signs: Vital Signs Temp 98.6 F 02/25/23 07:00 Pulse 80 02/25/23 07:00 Resp 21 02/25/23 07:00 BP 115/77 02/25/23 07:00 Pulse Ox 92 L 02/25/23 07:00 FiO2 Intake & Output 02/24/23 02/25/23 02/25/23 18:59 06:59 18:59 Intake Total 120 360 Output Total 1000 Balance -880 360 Weight 113.398 kg Intake: Oral 120 360 Output: Urine 1000 Straight 500 Other: Voiding Method Diaper Toilet Toilet External Catheter # Voids 0 2 2 - Exam GENERAL: The patient is sitting on side of bed and is not in acute distress. NEUROLOGICAL: Higher mental function: The patient is awake, alert, oriented to self, place and time. Patient is following commands. No aphasia and no neglect. Cranial nerves: The pupils are round, equal and reactive to light. Visual rodriguez are full to confrontation throughout. Extraocular movement is intact no nystagmus is noted. Facial sensation is normal to touch throughout. The facial strength is normal throughout. Tongue is midline and moved [id number] without any difficulty. No dysarthria is noted. Shoulder shrug is normal bilaterally. Motor: The strength is 5 over 5 throughout. Normal tone and bulk. Cerebellum: Normal finger to nose bilaterally. Sensation: Sensation is normal to touch throughout. Some of the work-up in our facility consists of: CBC with diff is normal. Plasma lactic acid vein is 3.3, glucose is 120, BUN 22. Otherwise rest is normal. CT head is reported as Postoperative changes of the left temporal craniotomy with postoperative encephalomalacia. No evidence for intracranial hemorrhage, significant mass effect or midline shift. I personally reviewed CT head and agree with report. Routine EEG is abnormal. The focal slowing over the left temporal region suggestive of focal cerebral dysfunction. There is a breach over the left temporal region consistent with the patient's history of skull defect. Otherwise there is no epileptiform discharges or seizure on the EEG and the background is normal. Clinical correlations recommended. - Labs CBC & Chem 7: 02/25/23 05:30 02/25/23 05:30 Labs: Abnormal Lab Results - Last 24 Hours (Table) 02/25/23 Range/Units 05:30 MCHC 30.8 L (31.0-37.0) g/dL Assessment and Plan Assessment: This is a 47y/o woman with hx of large meningioma over the left temporal s/p resection on 07/2022, seizure who presents to the emergency department because o f break-through seizure at home described as waking up to screaming, foaming around the mouth lasting 1 minute and then had GTC in our facility lasting 45 seconds. She has history of seizures and was tapered off antiepileptic drugs. Break through seizure. Not on antiepiletpic drugs.---currently stable History of large left meningioma s/p resection in 07/2022 History of seizures and was tapered off Vimpat and Briavct and off sedation since 10/2022. Keppra was not helping with seizures in past. Morbit Obesity Plan: She was started on Keppra 500mg bid by primary team. I spoke with and her daughter and it seems Keppra was not helping with seizures in past and patient was as result on Brivact and Vimpat and been tapered and off sedation since 10/2022. Therefore, I stopped Keppra and started her on Vimpat 100mg bid on 02/24/23 An Seizure precaution and pads. I highly recommend a prolonged EEG or Epilepsy monitoring unit (EMU) as outpati ent to access if having frequent seizure, subclinical seizures. Patient stated that she has an outpatient MRI and EEG by her neurologist Per [facility] because of her seizure, she is to avoid driving for 6 months until seizure free, avoid heights, swim unassisted, use heavy machinery. Will defer the rest of medical management to the primary team. Recommend the patient to follow-up with her neurologist (Dr. Felix) and neurosurgeon over at [place] within 1-2 weeks. The plan is discussed with patient and her primary team. There is no further neurological work-up. Will sign off. Please reconsult if needed. Time with Patient: Less than 30
== END 2023-02-25 15:25 | disposition home or self-care (01) ==
LOC: EC 02:57 → 6NMEDSUR 07:30
PROVIDERS: ADMIT Internal Medicine; ATTEND Internal Medicine
DX: G40.909 Epilepsy, unspecified, not intractable, without status epilepticus (principal); Z86.011 Personal history of benign neoplasm of the brain; I10 Essential (primary) hypertension; E66.01 Morbid (severe) obesity due to excess calories; Z68.41 Body mass index [BMI] 40.0-44.9, adult; F17.200 Nicotine dependence, unspecified, uncomplicated; M06.9 Rheumatoid arthritis, unspecified; Z79.899 Other long term (current) drug therapy; G93.89 Other specified disorders of brain
CPT/HCPCS: 96361 ×3; 96374; 96375; 99291; 36415; 95816; 80053; 80048; 82550; 83605; 83735; 85025 ×2; 70450; G0378 ×2; J2060; J2250; J1953

== ENCOUNTER 2023-02-27 07:59 | Emergency (ER) | payer OTHER ==
[2023-02-27] MEDS ORDERED: SODIUM CHLORIDE 0.9% 1,000 ML IV STA (08:14)
[2023-02-27] MEDS ORDERED: LACOSAMIDE 50 MG TABLET PO STA ×2 (08:14→10:07)
[2023-02-27 09:16] LABS: ALT 24 U/L (4-34); AST 39 U/L (14-36); African American GFR (CKD) >90 (>60 ml/min/1.73 sqM); Albumin 3.9 g/dL (3.5-5.0); Alkaline Phosphatase 92 U/L (38-126); Anion Gap 11 mmol/L; Blood Urea Nitrogen 18 mg/dL (7-17); Calcium 9.3 mg/dL (8.4-10.2); Carbon Dioxide 23 mmol/L (22-30); Chloride 103 mmol/L (98-107); Glucose 113 mg/dL (74-99); Magnesium 1.8 mg/dL (1.6-2.3); Non-African American GFR(CKD) >90 (>60 ml/min/1.73 sqM); Potassium 4.2 mmol/L (3.5-5.1); Sodium 137 mmol/L (137-145); Total Bilirubin 0.5 mg/dL (0.2-1.3); Total Protein 7.4 g/dL (6.3-8.2)
[2023-02-27 09:25] LABS: Basophils % (A) 0 %; Eosinophils # (A) 0.1 k/uL (0-0.7); Eosinophils % (A) 1 %; HCT 37.2 % (34.0-46.0); Lymphocytes % (A) 10 %; MCH 28.3 pg (25.0-35.0); MCHC 32.3 g/dL (31.0-37.0); MCV 87.5 fL (80.0-100.0); Mean Platelet Volume 7.8; Monocytes # (A) 0.6 k/uL (0-1.0); Monocytes % (A) 6 %; Neutrophils # (A) 7.9 k/uL (1.3-7.7); Neutrophils % (A) 82 %; Platelet Count 275 k/uL (150-450); RBC 4.25 m/uL (3.80-5.40); RDW 14.8 % (11.5-15.5); WBC 9.6 k/uL (3.8-10.6)
--- NOTE | 2023-02-27 09:46 | ED ---
Seizure HPI - General Chief Complaint: Seizure Stated Complaint: Seizure Time Seen by Provider: 02/27/23 08:05 Source: patient, EMS Mode of arrival: EMS Limitations: no limitations - History of Present Illness Initial Comments: 47 year old female with history of seizure disorder, meningioma with resection who presents to ED after she had another seizure. Patient was found having a seizure on the couch. It was generalized and only lasted a minutes. She did have urinary incontinence. was concerned as she was post ictal for close to an hour so he called EMS. Patient recently hospitalized for seizures. She was placed back on vimpat as she was recently weaned from all her seizure meds. Family denies that shes missed any doses since hospital discharge. Neurologist is a Claudio Escobedo. Patients arrives to ED and is alert x 3 with slowed r esponses. No reported trauma from the seizure. - Related Data Home Medications Medication Instructions Recorded Confirmed lisinopriL [Zestril] 20 mg PO DAILY 08/23/22 02/27/23 Folic Acid 1 mg PO DAILY 02/24/23 02/27/23 Naproxen [Naprosyn] 500 mg PO BID PRN 02/24/23 02/27/23 Lacosamide [Vimpat] 100 mg PO BID 02/27/23 02/27/23 Previous Rx's Medication Instructions Recorded Lacosamide [Vimpat] 50 mg PO BID #84 tablet 02/27/23 Allergies Allergy/AdvReac Type Severity Reaction Status Date / Time No Known Allergies Allergy Verified 02/27/23 08:12 Review of Systems ROS Statement: Those systems with pertinent positive or pertinent negative responses have been documented in the HPI. ROS Other: All systems not noted in ROS Statement are negative. Past Medical History Past Medical History: Rheumatoid Arthritis (RA), Seizure Disorder Additional Past Medical History / Comment(s): brain tumor History of Any Multi-Drug Resistant Organisms: None Reported Additional Past Surgical History / Comment(s): brain tumor removed Smoking Status: Never smoker Past Alcohol Use History: None Reported Past Drug Use History: None Reported General Exam Limitations: altered mental status (delayed responses) General appearance: alert, in no apparent distress Head exam: Present: atraumatic, normocephalic, normal inspection Eye exam: Present: normal appearance, PERRL, EOMI. Absent: scleral icterus, conjunctival injection, periorbital swelling ENT exam: Present: normal exam, mucous membranes moist Neck exam: Present: normal inspection. Absent: tenderness, meningismus, l ymphadenopathy Respiratory exam: Present: normal lung sounds bilaterally. Absent: respiratory distress, wheezes, rales, rhonchi, stridor Cardiovascular Exam: Present: regular rate, normal rhythm, normal heart sounds. Absent: systolic murmur, diastolic murmur, rubs, gallop, clicks GI/Abdominal exam: Present: soft, normal bowel sounds. Absent: distended, tenderness, guarding, rebound, rigid Extremities exam: Present: normal inspection, full ROM, normal capillary refill. Absent: tenderness, pedal edema, joint swelling, calf tenderness Back exam: Present: normal inspection Neurological exam: Present: alert, oriented X3, CN II-XII intact Psychiatric exam: Present: normal affect, normal mood Skin exam: Present: warm, dry, intact, normal color. Absent: rash Course Vital Signs 02/27/23 02/27/23 02/27/23 08:04 10:00 11:25 Temperature 98.6 F 98.1 F Pulse Rate 96 80 79 Respiratory 18 18 18 Rate Blood Pressure 135/86 135/82 132/91 O2 Sat by Pulse 95 93 L 93 L Oximetry Medical Decision Making - Medical Decision Making Was pt. sent in by a medical professional or institution ([facility], [facility], urgent care, hospital, or shelter...) When possible be specific @ -No Did you speak to anyone other than the patient for history (EMS, parent, family, police, friend...)? What history was obtained from this source @ -Spoke with EMS and patients sister Did you review nursing and triage notes (agree or disagree)? Why? @ -I reviewed and agree with nursing and triage notes Were old charts reviewed (outside hosp., previous admission, EMS record, old EKG, old radiological studies, urgent care reports/EKG's, shelter records)? Report findings @ -Reviewed ED chart from 02/24 and neurology consult from admission Differential Diagnosis (chest pain, altered mental status, abdominal pain women, abdominal pain men, vaginal bleeding, weakness, fever, dyspnea, syncope, headache, dizziness, GI bleed, back pain, seizure, CVA, palpatations, mental health, musculoskeletal)? @ -SAH, SDH, brain mass, meningitis, breakthrough seizure, medication non compliance EKG interpreted by me (3pts min.). @ -Yes and demonstrates sinus rhythm with a rate of 87. MN interval 159. QRS 107. QTC of 395. No acute ST segment elevations or depressions X-rays interpreted by me (1pt min.). @ -None done CT interpreted by me (1pt min.). @ -None done U/S interpreted by me (1pt. min.). @ -None done What testing was considered but not performed or refused? (CT, X-rays, U/S, labs)? Why? @ -MRI however patient wanted to go home and follow up on an outpatient basis What meds were considered but not given or refused? Why? @ -None Did you discuss the management of the patient with other professionals (professionals i.e. , PA, RETRIMMER, lab, RT, psych nurse, licensed social worker, art sales consultant, teacher, chief development officer, case management manager)? Give summary @ -Dr. Tamez who presents to ED to al patient. Was smoking cessation discussed for >3mins.? @ -No Was critical care preformed (if so, how long)? @ -No Were there social determinants of health that impacted care today? How? (Homelessness, low income, unemployed, alcoholism, drug addiction, transportatio n, low edu. Level, literacy, decrease access to med. care, half-way, rehab)? @ -No Was there de-escalation of care discussed even if they declined (Discuss DNR or withdrawal of care, Hospice)? DNR status @ -No What co-morbidities impacted this encounter? (DM, HTN, Smoking, COPD, CAD, Cancer, CVA, ARF, Chemo, Hep., AIDS, mental health diagnosis, sleep apnea, morbid obesity)? @ -seizure disorder, meningioma with removal Was patient admitted / discharged? Hospital course, mention meds given and route, prescriptions, significant lab abnormalities, going to OR and other pertinent info. @ -Patient placed into room 1. Placed on continuous pulse ox and cardiac monitoring. Patient is post ictal. Labs completed. I reviewed patients recent hospitalization. Dr. Tamez does present to ED to al patient. He requested MRI and to increase vimpat to 150 mg bid. Wants 200 loading dose now. PAtient does not want to stay. Would prefer to follow up with neurolgist and have MRI in outpatient setting. Patient will be discharged. She will increase seizure meds. Follow up within 1 week and return for any new or worsening symptoms. Patient discharged in stale condition. Undiagnosed new problem with uncertain prognosis @ -No Drug Therapy requiring intensive monitoring for toxicity (Heparin, Nitro, Insulin, Cardizem)? @ -No Were any procedures done? @ -No Diagnosis/symptom? @ -acute breakthrough seizure, hx seizure disorder Acute, or Chronic, or Acute on Chronic? @ -acute on chronic Uncomplicated (without systemic symptoms) or Complicated (systemic symptoms)? @ -complicated Side effects of treatment? @ -No Exacerbation, Progression, or Severe Exacerbation? @ -No Poses a threat to life or bodily function? How? (Chest pain, USA, SD, pneumonia, PE, COPD, DKA, ARF, appy, cholecystitis, CVA, Diverticulitis, Homicidal, Suicidal, threat to staff... and all critical care pts) @ -No - Lab Data Result diagrams: 02/27/23 08:14 02/27/23 08:14 Lab Results 02/27/23 02/27/23 02/27/23 Range/Units 08:14 08:14 10:29 WBC 9.6 (3.8-10.6) k/uL RBC 4.25 (3.80-5.40) m/uL Hgb 12.0 (11.4-16.0) gm/dL Hct 37.2 (34.0-46.0) % MCV 87.5 (80.0-100.0) fL MCH 28.3 (25.0-35.0) pg MCHC 32.3 (31.0-37.0) g/dL RDW 14.8 (11.5-15.5) % Plt Count 275 (150-450) k/uL MPV 7.8 Neutrophils % 82 % Lymphocytes % 10 % Monocytes % 6 % Eosinophils % 1 % Basophils % 0 % Neutrophils # 7.9 H (1.3-7.7) k/uL Lymphocytes # 1.0 (1.0-4.8) k/uL Monocytes # 0.6 (0-1.0) k/uL Eosinophils # 0.1 (0-0.7) k/uL Basophils # 0.0 (0-0.2) k/uL Sodium 137 (137-145) mmol/L Potassium 4.2 (3.5-5.1) mmol/L Chloride 103 (98-107) mmol/L Carbon Dioxide 23 (22-30) mmol/L Anion Gap 11 mmol/L BUN 18 H (7-17) mg/dL Creatinine 0.54 (0.52-1.04) mg/dL Est GFR (CKD-EPI)AfAm >90 (>60 ml/min/1.73 sqM) Est GFR (CKD-EPI)NonAf >90 (>60 ml/min/1.73 sqM) Glucose 113 H (74-99) mg/dL Calcium 9.3 (8.4-10.2) mg/dL Magnesium 1.8 (1.6-2.3) mg/dL Total Bilirubin 0.5 (0.2-1.3) mg/dL AST 39 H (14-36) U/L ALT 24 (4-34) U/L Alkaline Phosphatase 92 (38-126) U/L Total Protein 7.4 (6.3-8.2) g/dL Albumin 3.9 (3.5-5.0) g/dL Prolactin 10.600 (2.800-29.200) ng/mL Urine Color Light Yellow Urine Appearance Cloudy H (Clear) Urine pH 5.5 (5.0-8.0) Ur Specific [place] 1.015 (1.001-1.035) Urine Protein 1+ H (Negative) Urine Glucose (UA) Negative (Negative) Urine Ketones Trace H (Negative) Urine Blood Large H (Negative) Urine Nitrite Negative (Negative) Urine Bilirubin Negative (Negative) Urine Urobilinogen <2.0 (<2.0) mg/dL Ur Leukocyte Esterase Small H (Negative) Urine RBC >182 H (0-5) /hpf Urine WBC 15 H (0-5) /hpf Ur Squamous Epith Cells 1 (0-4) /hpf Urine Bacteria Rare H (None) /hpf Hyaline Casts 1 (0-2) /lpf Urine Mucus Occasional H (None) /hpf Disposition Clinical Impression: Breakthrough seizure Disposition: HOME SELF-CARE Condition: Stable Instructions (If sedation given, give patient instructions): Seizure/Epilepsy Discharge Instructions & Follow-Up, Recurrent Seizures in Adults (ED) Additional Instructions: Please take 150 mg of the Vimpat twice a day. Follow-up with your neurologist at your scheduled appointment. Return for any new or worsening symptoms Prescriptions: Lacosamide [Vimpat] 50 mg PO BID #84 tablet Is patient prescribed a controlled substance at d/c from ED?: No Referrals: Juan David Villalta MD [Primary Care Provider] - 1-2 days Time of Disposition: 10:08
[2023-02-27 10:44] LABS: Appearance,Urine Cloudy (Clear); Bacteria,Urine Rare /hpf; Bilirubin,Urine Negative (Negative); Blood,Urine Large (Negative); Color,Urine Light Yellow; Glucose,Urine (UA) Negative (Negative); Hyaline Casts,Urine 1 /lpf (0-2); Ketones,Urine Trace (Negative); Leukocyte Esterase,Urine Small (Negative); Mucus,Urine Occasional /hpf; Nitrite,Urine Negative (Negative); PH, Urine 5.5 (5.0-8.0); Protein,Urine 1+ (Negative); RBC,Urine >182 /hpf (0-5); Specific Gravity,Urine 1.015 (1.001-1.035); Squamous Epithelial Cell,Urine 1 /hpf (0-4); Urobilinogen,Urine <2.0 mg/dL (<2.0); WBC,Urine 15 /hpf (0-5)
--- NOTE | 2023-02-27 13:05 | P.CNNES ---
History of Present Illness Consult date: 02/27/23 Requesting physician: Jeanne Dejesus Reason for Consult: seizure History of Present Illness: This is a 47-year-old woman with history of large meningioma over the left temporal lobe status post resection on 2022, seizure who presented emergency department because of breakthrough seizure. She is accompanied with her sister was at bedside. Patient is known to me and the she was last seen by me on 02/25/2023 our facility because of breakthrough seizure and she was stable after being on Vimpat 100 mg 1 tablet twice a day. It seems that today at patient was feeling off and not acting right with his speech difficulty and that happened at 6:30 in the morning today and lasted for a few hours according to the sister. The sister was not at home when this transpired that initially but currently she is back to baseline now. That she was compliant taking her Vimpat that she was discharged on 100 mg 1 tablet twice a day. No tongue bite, urinary incontinence or bowel incontinence. As stated earlier I personally saw the patient on her prior hospital visit in which she was admitted on 02/24/2023 and I saw her last on 02/25/2023 for breakthrough seizure. Last time she was not on any medication prior to present ing on prior admission and then that she was placed on the Vimpat 100 mg 1 tablet twice a day and she improved that. She had an EEG in the EEG was abnormal which was focal slowing over the left temporal region. As well as she had a breach over the left temporal consistent with the patient's skull defect. But there is no epileptiform discharges or seizure on the EEG. I recommend a prolonged EEG as an outpatient. Please review my prior notes for further details. Some other workup by during this hospital visit consisted of: CBC with differential is neutrophils is 7.9 thousand otherwise unremarkable Chemistry panel as a BUN is 18, glucose 113 and AST is 39. Urinalysis is urine white blood cells 15 over your blood cell is more than 182, urine bacteria is rare, nitrate is negative, Review of Systems 10 point system was reviewed and pertinent positive and negative as per HPI. Past Medical History Past Medical History: Rheumatoid Arthritis (RA), Seizure Disorder Additional Past Medical History / Comment(s): brain tumor History of Any Multi-Drug Resistant Organisms: None Reported Additional Past Surgical History / Comment(s): brain tumor removed Smoking Status: Never smoker Past Alcohol Use History: None Reported Past Drug Use History: None Reported Medications and Allergies Home Medications Medication Instructions Recorded Confirmed Type lisinopriL [Zestril] 20 mg PO DAILY 08/23/22 02/27/23 History Folic Acid 1 mg PO DAILY 02/24/23 02/27/23 History Naproxen [Naprosyn] 500 mg PO BID PRN 02/24/23 02/27/23 History Lacosamide [Vimpat] 50 mg PO BID #84 tablet 02/27/23 Rx Lacosamide [Vimpat] 100 mg PO BID 02/27/23 02/27/23 History Allergies Allergy/AdvReac Type Severity Reaction Status Date / Time No Known Allergies Allergy Verified 02/27/23 08:12 Physical Examination - Vital Signs Vital Signs: Vital Signs Temp Pulse Resp BP Pulse Ox 02/27/23 11:25 98.1 F 79 18 132/91 93 L 02/27/23 10:00 80 18 135/82 93 L 02/27/23 08:04 98.6 F 96 18 135/86 95 Intake and Output 02/26/23 02/27/23 02/27/23 22:59 06:59 14:59 Other: Weight 122.47 kg GENERAL: The patient is lying in bed and is not in acute distress. NEUROLOGICAL: Higher mental function: The patient is awake, alert, oriented to self, place and time. Patient is following commands. No aphasia and no neglect. Cranial nerves: The pupils are round, equal and reactive to light. Visual rodriguez are full to confrontation throughout. Extraocular movement is intact no nystagmus is noted. Facial sensation is normal to touch throughout. The facial strength is normal throughout. Hearing is normal bilaterally to hand rub. Tongue is midline and moved [id number] without any difficulty. No dysarthria is noted. Shoulder shrug is normal bilaterally. Motor: The strength is 5 over 5 throughout. Normal tone and bulk. Cerebellum: Normal finger to nose bilaterally. Sensation: Sensation is normal to touch throughout. Results - Laboratory Findings CBC and BMP: 02/27/23 08:14 02/27/23 08:14 Abnormal Lab Findings: Abnormal Labs 02/27/23 02/27/23 02/27/23 08:14 08:14 10:29 Neutrophils # 7.9 H BUN 18 H Glucose 113 H AST 39 H Urine Appearance Cloudy H Urine Protein 1+ H Urine Ketones Trace H Urine Blood Large H Ur Leukocyte Esterase Small H Urine RBC >182 H Urine WBC 15 H Urine Bacteria Rare H Urine Mucus Occasional H Assessment and Plan Assessment: This is a 47-year-old woman with history of large meningioma over the left temporal status post resection on 07/2022, seizure presented emergency department because of breakthrough seizure. It seems that the patient was felt she was weak earlier today and was having speech difficulty and the episode lasted for a few hours then resolved. Currently back to baseline now. She was recently in our facility and was discharged on 02/25/2023 because of breakthrough seizure. Breakthrough seizure: Likely due to low dose of antiepileptic drug History of seizure History of large meningioma over the left temporal status post resection on 2022 Morbid obesity Plan: I increased her Vimpat from 100 mg twice a day to 150 mg twice a day. Patient was notified if continues to have any seizure-like activity to go up to 200 mg twice a day. Patient was notified that that we can the pursue with MRI of the brain during this hospital visit but her and her sister decided that the patient try to obtain as an outpatient by her neurologist. Recommend a prolonged EEG as an outpatient/epilepsy monitoring unit to evaluate for the any subclinical seizures acute capture episodes. Will defer this to her neurologist. Per [place] [facility] because of her seizures, she was told the to avoid driving for 6 month until seizure-free, avoid heights, swimming unassisted or use heavy machinery. Patient to follow-up with her neurologist, Dr. Felix. Patient stated that she has an appointment next week. Patient and her sister do not want to stay here overnight and as stated above want MRI Brain as outpatient. If Seizure-free within couple chours, then the patient is clear for discharge. The plan was discussed with the patient, her sister was at bedside in the ED physician. Thank you for the consultation Time with Patient: Greater than 30
[2023-02-27 15:57] VITALS: BP 132/91; PULSE 79; RESP 18; TEMP 98.1
== END 2023-02-27 11:29 | disposition home or self-care (01) ==
LOC: EC 07:59
DX: G40.909 Epilepsy, unspecified, not intractable, without status epilepticus (principal); E66.01 Morbid (severe) obesity due to excess calories; Z68.41 Body mass index [BMI] 40.0-44.9, adult; Z79.899 Other long term (current) drug therapy
CPT/HCPCS: 36415; 80053; 81001; 83735; 84146; 85025; 87086; 93005; 96360; 99285